=== PATIENT | female | born 1980 ===

== ENCOUNTER 2024-01-16 09:00 | Inpatient (IN) | payer OTHER ==
[~2024-01-16] VITALS: Ht 157.5 cm; Wt 73.9 kg
[2024-01-16] MEDS ORDERED: COZAAR50 MG PO (09:56)
[2024-01-16] MEDS ORDERED: PEPCID40 MG PO (09:56)
[2024-01-22] MEDS ORDERED: LIDOCAINE HCL 1%/EPINEPHRINE 20ML VIAL IJ ONE (14:15)
[2024-01-22] MEDS ORDERED: METRONIDAZOLE/SODIUM CHLORIDE 500 MG/100 ML PIGGYBACK IV ONE (14:15)
[2024-01-22] MEDS ORDERED: CEFTRIAXONE SODIUM 2,000 MG VIAL IV ONE (14:15)
[2024-01-22] MEDS ORDERED: BUPIVACAINE HCL 30 ML VIAL IJ ONE (14:15)
[2024-01-22] MEDS ORDERED: MORPHINE SULFATE 4 MG/ML CARTRIDGE IV PRN (15:45)
[2024-01-22] MEDS ORDERED: RINGERS SOLUTION,LACTATED 1,000 ML IV SCH (15:45)
[2024-01-22] MEDS ORDERED: ONDANSETRON HCL 2 MG/ML VIAL IV PRN (15:45)
[2024-01-22] MEDS ORDERED: OxyCODONE HCL 5 MG TABLET (ROXICODONE) PO PRN (15:45)
[2024-01-22] MEDS ORDERED: SIMETHICONE 125 MG CAPSULE PO SCH (17:00)
[2024-01-22] MEDS ORDERED: ENALAPRILAT DIHYDRATE 1.25 MG/ML VIAL IV PRN (17:00)
[2024-01-22] MEDS ORDERED: CELECOXIB 200 MG CAPSULE PO SCH (17:00)
[2024-01-22] MEDS ORDERED: GABAPENTIN 300 MG CAPSULE PO SCH (17:00)
[2024-01-22] MEDS ORDERED: METOCLOPRAMIDE HCL 5 MG/ML VIAL IV SCH (17:00)
[2024-01-22] MEDS ORDERED: HYOSCYAMINE SULFATE 0.125 MG TAB.SUBL SL SCH (17:00)
[2024-01-22] MEDS ORDERED: POLYETHYLENE GLYCOL 3350 17 GM BLIST.PACK PO SCH (17:00)
[2024-01-22] MEDS ORDERED: MORPHINE SULFATE 4 MG/ML VIAL IV ONE ×2 (17:15→18:00)
[2024-01-22 18:38] VITALS: BP 121/81; O2SAT 97
[2024-01-22] MEDS ORDERED: ACETAMINOPHEN 500 MG GEL..CAP PO SCH (20:00)
[2024-01-22] MEDS ORDERED: FAMOTIDINE/PF 20 MG/2 ML VIAL IV PUSH SCH (21:00)
[2024-01-22 21:23] LABS: HEMATOCRIT 33.2 % (36.0-45.00); HEMOGLOBIN 11.1 g/dL (12.0-15.00); MEAN CORPUSCULAR HEMOGLOBIN 27.8 pg (27.00-32.0); MEAN CORPUSCULAR HGB CONC 33.5 g/dl (32.0-36.0); PLATELET COUNT 312 K/uL (150-450); RED CELL DISTRIBUTION WIDTH 16.9 % (11.5-14.5)
[2024-01-23 00:27] VITALS: BP 90/51; O2SAT 96
[2024-01-23 06:45] LABS: HEMATOCRIT 31.2 % (36.0-45.00); HEMOGLOBIN 10.5 g/dL (12.0-15.00); MEAN CELL VOLUME 80.7 fL (80.00-100.00); MEAN CORPUSCULAR HEMOGLOBIN 27.3 pg (27.00-32.0); MEAN CORPUSCULAR HGB CONC 33.8 g/dl (32.0-36.0); PLATELET COUNT 289 K/uL (150-450); RED BLOOD COUNT 3.87 M/uL (4.00-6.00); RED CELL DISTRIBUTION WIDTH 16.9 % (11.5-14.5)
[2024-01-23 07:23] LABS: ALBUMIN 2.9 gm/dL (3.4-5.0); CALCIUM 8.4 mg/dL (8.5-10.1); CREATININE SERUM 0.69 mg/dL (0.55-1.02); GFR 93.3; MAGNESIUM 1.9 mg/dL (1.8-2.4); PHOSPHOROUS 3.2 mg/dL (2.5-4.9); POTASSIUM 3.77 mEq/L (3.5-5.1)
[2024-01-23] MEDS ORDERED: LACTOBACILLUS ACIDOPHILUS 1 CAP CAP PO SCH (09:00)
[2024-01-23] MEDS ORDERED: LACTULOSE 20 G/30 ML BLIST.PACK PO SCH (09:00)
[2024-01-23] MEDS ORDERED: LOSARTAN POTASSIUM 50 MG TABLET PO SCH (09:00)
[2024-01-23 09:17] VITALS: BP 103/69; O2SAT 94
[2024-01-23] MEDS ORDERED: ENOXAPARIN SODIUM 40 MG/0.4 ML SYRINGE SUBCUTANEO SCH (17:00)
[2024-01-23 17:05] VITALS: BP 105/72; O2SAT 99
[2024-01-24 00:13] VITALS: BP 119/70; O2SAT 99
[2024-01-24 07:27] LABS: HEMATOCRIT 28.8 % (36.0-45.00); HEMOGLOBIN 9.7 g/dL (12.0-15.00); MEAN CELL VOLUME 81.9 fL (80.00-100.00); MEAN CORPUSCULAR HEMOGLOBIN 27.6 pg (27.00-32.0); MEAN CORPUSCULAR HGB CONC 33.7 g/dl (32.0-36.0); PLATELET COUNT 258 K/uL (150-450); RED BLOOD COUNT 3.52 M/uL (4.00-6.00); RED CELL DISTRIBUTION WIDTH 16.8 % (11.5-14.5)
[2024-01-24 08:00] VITALS: BP 151/81; O2SAT 96
[2024-01-24 08:58] LABS: CALCIUM 8.6 mg/dL (8.5-10.1); CREATININE SERUM 0.58 mg/dL (0.55-1.02); PHOSPHOROUS 2.8 mg/dL (2.5-4.9); POTASSIUM 4.05 mEq/L (3.5-5.1)
[2024-01-24] MEDS ORDERED: ENOXAPARIN SODIUM 40 MG/0.4 ML SYRINGE SUBCUTANEO SCH (09:00)
== END 2024-01-24 14:07 | disposition home or self-care (01) | DRG 330 ==
LOC: O/R 01-22 06:58 → SURH 01-22 09:00 → EDSEX 01-22 09:00 → SURH 01-22 10:45 → SURG 01-22 17:06
PROVIDERS: Internal Medicine Geriatric Medicine; ADMIT Colon & Rectal Surgery; ATTEND Colon & Rectal Surgery
PROC: 0DBP4ZZ Excision of Rectum, Percutaneous Endoscopic Approach (ICD-10-PCS; 2024-01-22)
PROC: 0DJD8ZZ Inspection of Lower Intestinal Tract, Via Natural or Artificial Opening Endoscopic (ICD-10-PCS; 2024-01-22)
PROC: 0DTN4ZZ Resection of Sigmoid Colon, Percutaneous Endoscopic Approach (ICD-10-PCS; principal; 2024-01-22 10:45)
DX: K57.20 Diverticulitis of large intestine with perforation and abscess without bleeding (principal); K92.1 Melena